=== PATIENT | male | born 1940 | race Caucasian/White ===

== ENCOUNTER 2017-11-14 00:18 | Observation (INO) | payer OTHER, MEDICARE ==
[~2017-11-14] VITALS: Ht 170.2 cm; Wt 83.0 kg
[~2017-11-14 00:18] MED LIST: CLOPIDOGREL75 MG PO; METOPROLOL SUCC50 MG PO; NITROSTAT0.4 M1 SL; ZETIA10 MG PO
--- NOTE | 2017-11-14 00:25 | ED SYNCOPE COMPLAINT ---
History of Present Illness General Chief Complaint: Syncope and Near-Syncope Stated Complaint: BIBA SYNCOPE X2, LAC ON TOE Source: patient Exam Limitations: no limitations Vital Signs & Intake/Output Vital Signs & Intake/Output Vital Signs Date Time Temp Pulse Resp B/P B/P Pulse O2 O2 Flow FiO2 Mean Ox Delivery Rate 11/14 0024 96.5 59 18 133/88 95 Room Air Allergies Coded Allergies: Iodinated Contrast- Oral and IV Dye (Intermediate, RAPID HR 11/14/17) Reconcile Medications CLOPIDOGREL BISULFATE (Clopidogrel) 75 MG TABLET 1 TAB PO DAILY BLOOD THINNER (Reported) Ezetimibe (Zetia) 10 MG TAB 1 TAB PO DAILY CHOLESTEROL (Reported) Metoprolol Succinate 50 MG TAB.ER.24H 1 TAB PO DAILY HEART HEALTH (Reported) Nitroglycerin (Nitrostat) 0.4 MG TAB.SUBL 1 TAB SL PRN CHEST PAIN (Reported) Triage Nurses Notes Reviewed? yes Timing: recent history Precipitating Factors: foot injury Context: banged toes Episode Description: banged left toes, then passed out twice Loss of Consciousness: brief (seconds) Associated Symptoms: syncope HPI: 77 yo gentleman h/o mi,cad, presents with 2 episodes of syncope. Per his , he banged his left toes. Shortly afterwards, he lost consciousness twice. "He passed out for about 15 seconds, came to, and then passed out again." Per the medics, his blood pressure was low and he was diaphoretic, and slowly resumed consciousness en route. Presently, he is feeling well, but has no recollection of the event. Past History Travel History Traveled to [place] past 21 day No Medical History Any Pertinent Medical History? see below for history Neurological: CVA Cardiovascular: CAD, myocardial infarction Surgical History Surgical History: none Psychosocial History What is your primary language Barbadian Family History Hx Contributory? No Review of Systems Review of Systems Constitutional: Reports: no symptoms. EENTM: Reports: no symptoms. Respiratory: Reports: no symptoms. Cardiovascular: Reports: no symptoms. GI: Reports: no symptoms. Genitourinary: Reports: no symptoms. Musculoskeletal: Reports: no symptoms. Skin: Reports: no symptoms. Neurological/Psychological: Reports: no symptoms. All Other Systems: Reviewed and Negative Physical Exam Physical Exam General Appearance: well developed/nourished Head: atraumatic, normal appearance Eyes: Bilateral: normal appearance. Ears, Nose, Throat: normal pharynx, normal ENT inspection Neck: normal inspection, supple, full range of motion Respiratory: normal breath sounds, chest non-tender, no respiratory distress, quiet respiration, lungs clear Cardiovascular: regular rate/rhythm Gastrointestinal: normal bowel sounds, soft, non-tender, no organomegaly Back: normal inspection, normal range of motion Extremities: normal inspection Psychiatric: awake, alert, oriented x 3 Cranial Nerves: normal hearing, normal speech, PERRL Coordination/Gait: normal finger to nose Motor/Sensory: no motor/sensory deficits Skin: intact, normal color, warm/dry Core Measures ACS in differential dx? No CVA/TIA Diagnosis: No Sepsis Present: No Sepsis Focused Exam Completed? No Progress Differential Diagnosis: AMI, sick sinus syndrome, subarachnoid hem., TIA/CVA Plan of Care: Orders Procedure Date/time Status CBC WITHOUT DIFFERENTIAL 11/15 0600 Active BASIC ELECTROLYTES PLUS BUN&CR 11/15 06 Active Nothing by Mouth 11/14 B Active TROPONIN LEVEL 11/14 1200 Active EKG 11/14 1200 Active TROPONIN LEVEL 11/14 0600 Active EKG 11/14 0600 Active Pathway - chart 11/14 0317 Active Patient Data 11/14 0306 Active Saline Lock 11/[address] in observation 11/14 0241 Active Misc Message 11/14 0241 Active ED Holding Orders 11/14 0241 Active Vital Signs 11/14 0241 Active Code Status 11/14 0241 Active D-DIMER 11/14 0034 Complete TROPONIN LEVEL 11/14 0025 Complete LIPASE 11/14 0025 Complete HEPATIC FUNCTION PANEL 11/14 0025 Complete CBC WITHOUT DIFFERENTIAL 11/14 0025 Complete BASIC METABOLIC PANEL 11/14 0025 Complete AMYLASE 11/14 0025 Complete EKG 11/14 0025 Active EKG 11/14 0024 Active House Staff 11/14 UNK Active VTE Mechanical Prophylaxis 11/14 UNK Active Vital Signs 11/14 UNK Active MISTAKE 11/14 UNK Active ECHOCARDIOGRAM 11/14 UNK Active Current Medications Sig/Willy Start time Last Medication Dose Stop Time Status Admin Heparin Sodium 5,000 UNIT Q8 11/14 0600 UNVr (Porcine) Laboratory Tests 11/14/17 0037: Anion Gap 13, Estimated GFR > 60, BUN/Creatinine Ratio 17.5, Glucose 101 H, Calcium 9.2, Total Bilirubin 0.3, Direct Bilirubin 0.2, AST 34, ALT 38, Alkaline Phosphatase 56, Troponin I < 0.01, Total Protein 6.3, Albumin 3.9, Amylase 61, Lipase 85, D-Dimer High Sensitivty 214, CBC w Diff NO MAN DIFF REQ, RBC 4.03 L, MCV 88.3, MCH 30.3, MCHC 34.3, RDW 13.5, MPV 7.3 L, Gran % 59.6, Lymphocytes % 28.1, Monocytes % 8.2, Eosinophils % 3.4, Basophils % 0.7, Absolute Granulocytes 3.5, Absolute Lymphocytes 1.6, Absolute Monocytes 0.5, Absolute Eosinophils 0.2, Absolute Basophils 0 Diagnostic Imaging: Viewed by Me: Radiology Read, CT Scan. Discussed w/RAD: Radiology Read, CT Scan. Radiology Impression: PATIENT: BRIAN BARCLAY PRESENT AGE: 77 PATIENT ACCOUNT NO: [id number] : 39 LOCATION: [facility] ORDERING PHYSICIAN: Wing Flynn MD SERVICE DATE: 11/14/17 EXAM TYPE: CAT - CT HEAD WO IV CONTRAST EXAMINATION: CT HEAD WITHOUT CONTRAST CLINICAL INFORMATION: Syncope. Mental status change. COMPARISON: 80 04/05/2014 TECHNIQUE: Contiguous axial imaging was performed from the skull base to vertex without intravenous contrast. DLP: 616 mGy-cm. FINDINGS: There is encephalomalacia and gliosis in the left frontal lobe at the site of previous parenchymal hemorrhage. 2 dilatation of the frontal horn of the left lateral ventricle. Chronic left occipital infarct. There is also a chronic infarct in the right frontal lobe which is new when compared to the study from 04/23/2014. There is no evidence of acute intracranial hemorrhage or territorial infarction. No abnormal mass effect or midline shift is seen. Hawkins to white matter differentiation is otherwise well preserved. No extra-axial fluid collections are identified. No hydrocephalus. Proportional prominence of the ventricles and sulcal spaces is consistent with mild volume loss. Patchy periventricular and deep white matter hypoattenuation is consistent with moderate small vessel ischemic changes. The osseous structures and soft tissues are normal. The mastoid air cells and visualized portions of the paranasal sinuses are well aerated. IMPRESSION: No acute intracranial pathology. Multiple chronic infarcts. DICTATED BY: Otoniel HACKETT,Ivan DATE/TIME DICTATED:02139 CONTINUOUS PILLOWCASE CUTTER:RAZA DATE/TIME TRANSCRIBED:11/14/17139 CONFIDENTIAL, DO NOT COPY WITHOUT APPROPRIATE AUTHORIZATION. <Electronically signed in Other Vendor System> SIGNED BY: Ivan Frederick MD 11/14/17144 CXR Impression: PATIENT: BRIAN BARCLAY PRESENT AGE: 77 PATIENT ACCOUNT NO: [id number] : 39 LOCATION: ER ORDERING PHYSICIAN: Wing Flynn MD SERVICE DATE: 11/14/17 EXAM TYPE: RAD - XRY-PORTABLE CHEST XRAY EXAMINATION: XR PORTABLE CHEST CLINICAL INFORMATION: Syncope COMPARISON: 04/23/2014 TECHNIQUE: Portable frontal view of the chest was obtained. FINDINGS: The lungs are well expanded. There is no focal consolidation, edema, or effusion. No pneumothorax. The cardiomediastinal silhouette is within normal limits. No acute osseous abnormality. IMPRESSION: No acute pulmonary findings. DICTATED BY: Ivan Frederick MD DATE/TIME DICTATED: 11/14/17141 CONTINUOUS PILLOWCASE CUTTER:ANDRA DATE/TIME TRANSCRIBED:11/14/17141 CONFIDENTIAL, DO NOT COPY WITHOUT APPROPRIATE AUTHORIZATION. <Electronically signed in Other Vendor System> SIGNED BY: Ivan Frederick MD 11/14/17145, PATIENT: BRIAN BARCLAY PRESENT AGE: 77 PATIENT ACCOUNT NO: [id number] : 39 LOCATION: [facility] ORDERING PHYSICIAN: Wing Flynn MD SERVICE DATE: 11/14/17 EXAM TYPE: RAD - XRY- TOES, LEFT EXAMINATION: XR TOES, LEFT CLINICAL INFORMATION: Third toe nail avulsion. Contusion. COMPARISON: None TECHNIQUE: 3 views of the left toes were obtained. FINDINGS: No fracture or dislocation. Alignment is anatomic. Degenerative changes noted at the fifth metatarsophalangeal joint. Mild degenerative changes throughout the visualized interphalangeal joints throughout. IMPRESSION: No evidence of acute fracture or malalignment. DICTATED BY: Ivan Frederick MD DATE/TIME DICTATED:11/14/17141 CONTINUOUS PILLOWCASE CUTTER: RAZA DATE/TIME TRANSCRIBED:11/14/17141 CONFIDENTIAL, DO NOT COPY WITHOUT APPROPRIATE AUTHORIZATION. <Electronically signed in Other Vendor System> SIGNED BY: Otoniel HACKETT,Ivan 11/14/17 0146 Initial ED EKG: normal axis, NSR, no acute changes Departure Departure Disposition: STILL A PATIENT Condition: Stable Clinical Impression Primary Impression: Syncope Referrals: Patient Has No Primary Care Dr (PCP/Family) Departure Forms: Customer Survey General Discharge Information Comments 11/14/17, 2:34am... discussed with dr. espinal who concurs with inpatient observation, serial troponins for syncope. Observation Note Spoke With: Bobbi Snyder MD Patient In: Non-ED OBS Care Area Rationale for Observation: My rational for observation is as follows . pt with syncope, with prolonged symptoms, and cardiac history.... pt merits cardiac eval in AM, serial trops/ekg.
[2017-11-14 00:52] LABS: ABSOLUTE BASOPHIL COUNT 0 /CUMM (0.0-0.2); ABSOLUTE EOSINOPHIL COUNT 0.2 /CUMM (0.0-0.7); ABSOLUTE GRANULOCYTE CT 3.5 /CUMM (1.4-6.5); ABSOLUTE LYMPH COUNT 1.6 /CUMM (1.2-3.4); ABSOLUTE MONOCYTE COUNT 0.5 /CUMM (0.10-0.60); BASOPHIL % 0.7 % (0.0-2.0); EOSINOPHIL % 3.4 % (0-5); GRANULOCYTE % 59.6 % (42.2-75.2); HEMATOCRIT 35.6 % (42-52); MEAN CORPUSCULAR HGB 30.3 PG (27.0-31.0); MEAN CORPUSCULAR HGB CONC 34.3 G/DL (33.0-37.0); MEAN CORPUSCULAR VOLUME 88.3 FL (80.0-94.0); MEAN PLATELET VOLUME 7.3 FL (7.4-10.4); PLATELET COUNT 215 /CUMM (130-400); RBC DISTRIBUTION WIDTH 13.5 % (11.5-14.5); RED BLOOD CELL CT 4.03 /CUMM (4.70-6.10); WHITE BLOOD CELL COUNT 5.8 /CUMM (4.8-10.8)
--- NOTE | 2017-11-14 01:45 | CT SCAN REPORT ---
EXAMINATION: CT HEAD WITHOUT CONTRAST CLINICAL INFORMATION: Syncope. Mental status change. COMPARISON: 80 04/05/2014 TECHNIQUE: Contiguous axial imaging was performed from the skull base to vertex without intravenous contrast. DLP: 616 mGy-cm. FINDINGS: There is encephalomalacia and gliosis in the left frontal lobe at the site of previous parenchymal hemorrhage. 2 dilatation of the frontal horn of the left lateral ventricle. Chronic left occipital infarct. There is also a chronic infarct in the right frontal lobe which is new when compared to the study from 04/23/2014. There is no evidence of acute intracranial hemorrhage or territorial infarction. No abnormal mass effect or midline shift is seen. Hawkins to white matter differentiation is otherwise well preserved. No extra-axial fluid collections are identified. No hydrocephalus. Proportional prominence of the ventricles and sulcal spaces is consistent with mild volume loss. Patchy periventricular and deep white matter hypoattenuation is consistent with moderate small vessel ischemic changes. The osseous structures and soft tissues are normal. The mastoid air cells and visualized portions of the paranasal sinuses are well aerated. IMPRESSION: No acute intracranial pathology. Multiple chronic infarcts.
--- NOTE | 2017-11-14 01:46 | RADIOLOGY REPORT ---
EXAMINATION: XR TOES, LEFT CLINICAL INFORMATION: Third toe nail avulsion. Contusion. COMPARISON: None TECHNIQUE: 3 views of the left toes were obtained. FINDINGS: No fracture or dislocation. Alignment is anatomic. Degenerative changes noted at the fifth metatarsophalangeal joint. Mild degenerative changes throughout the visualized interphalangeal joints throughout. IMPRESSION: No evidence of acute fracture or malalignment.
--- NOTE | 2017-11-14 01:46 | RADIOLOGY REPORT ---
EXAMINATION: XR PORTABLE CHEST CLINICAL INFORMATION: Syncope COMPARISON: 04/23/2014 TECHNIQUE: Portable frontal view of the chest was obtained. FINDINGS: The lungs are well expanded. There is no focal consolidation, edema, or effusion. No pneumothorax. The cardiomediastinal silhouette is within normal limits. No acute osseous abnormality. IMPRESSION: No acute pulmonary findings.
--- NOTE | 2017-11-14 03:08 | History & Physical ---
Noel HACKETT,[facility] 11/14/17 0308: General Information and HPI MD Statement: I have seen and personally examined BRIAN BARCLAY and documented this H&P. The patient is a 77 year old M who presented with a patient stated chief complaint of [?syncope]. History of Present Illness: 77-year-old male past history of CAD status post stent, MS, CVA X2 with intracranial bleed in 2013, frequent stumbling, herniated disc repair presenting for multiple syncope episodes per his . Most the history is given by the patient's . Patient's states that the patient is wobbly at baseline. The was helping the patient gets the bathroom however the patient while pulled and stumbled and stopped his toe outside the bathroom. The was able to help the patient onto the toilet. Where she noticed that the patient suddenly slumped against the wall. She asked if he was okay in that he slumped again. The the states that during the third slumped the patient was completely passed out for around 15 seconds. She believes that the patient also had another 1-2 precautions episodes. The patient's states that when EMS arrived they notice that he was still more sweaty than usual. The patient denies any chest pain, or palpitations. The denies any seizure-like activities. The patient states that his appetite has been fine. He denies any upper sternal infection, fevers, chills, shortness of breath, nausea, vomiting, lightheadedness, or any recent changes in his medication. 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 Allergies/Medications Allergies: Coded Allergies: Iodinated Contrast- Oral and IV Dye (Intermediate, RAPID HR 11/14/17) Past History Travel History Traveled to [place] past 21 day No Medical History Neurological: CVA X2 INTERMITTENT CONFUSION EENT: UNABLE TO COMPREHEND READING Cardiovascular: CAD, myocardial infarction Respiratory: NONE Gastrointestinal: NONE Hepatic: NONE Renal: NONE Musculoskeletal: NONE Psychiatric: NONE Endocrine: NONE Blood Disorders: NONE Cancer(s): NONE TEST ARCHITECT/Reproductive: NONE Surgical History Surgical History: disc herniation, appy, cataracts Review of Systems Review of Systems Constitutional: Reports: see HPI. Genitourinary: Reports: see HPI, frequency, hesitation. Exam & Diagnostic Data Last 24 Hrs of Vital Signs/I&O Vital Signs Date Time Temp Pulse Resp B/P B/P Pulse O2 O2 Flow FiO2 Mean Ox Delivery Rate 11/14 0606 97.9 59 18 148/72 96 Room Air 11/14 0453 100 Room Air 11/14 0409 98.3 59 16 158/75 98 Room Air 11/14 0024 96.5 59 18 133/88 95 Room Air Intake & Output 11/14 0800 11/14 0000 11/13 1600 Intake Total Output Total 200 Balance -200 Output, Urine 200 Physical Exam General Appearance Alert, Oriented X3, Cooperative, No Acute Distress Cardiovascular Regular Rate, Normal S1, Normal S2 Lungs Clear to Auscultation, Normal Air Movement Abdomen Normal Bowel Sounds, Soft, No Tenderness Extremities L 3rd toenail bruising, decreased left toe flexion due to prior fracture left pinky toe Vascular 2+ radial and pedal pulses Last 24 Hrs of Labs/[place]rispin: Laboratory Tests 11/14/17 0620: Troponin I < 0.01 11/14/17 0037: Anion Gap 13, Estimated GFR > 60, BUN/Creatinine Ratio 17.5, Glucose 101 H, Calcium 9.2, Iron 66, TIBC 365, Ferritin 67.5, Total Bilirubin 0.3, Direct Bilirubin 0.2, AST 34, ALT 38, Alkaline Phosphatase 56, Troponin I < 0.01, Total Protein 6.3, Albumin 3.9, Amylase 61, Lipase 85, D-Dimer High Sensitivty 214, CBC w Diff NO MAN DIFF REQ, RBC 4.03 L, MCV 88.3, MCH 30.3, MCHC 34.3, RDW 13.5 , MPV 7.3 L, Gran % 59.6, Lymphocytes % 28.1, Monocytes % 8.2, Eosinophils % 3.4, Basophils % 0.7, Absolute Granulocytes 3.5, Absolute Lymphocytes 1.6, Absolute Monocytes 0.5, Absolute Eosinophils 0.2, Absolute Basophils 0 Assessment/Plan Assessment: A: 77-year-old male past history of CAD status post stent, MS, CVA X2 with intracranial bleed in 2013, frequent stumbling, herniated disc repair presenting for multiple syncope episodes per his . P: #syncope s/p foot trauma Most likely vasovagal in nature from pain after foot trauma Toe XR: negative for any acute pathology Head ct: multiple chronic infarcts CXR: negative for any acute pathology Trops <.01x2 -serial trops and ekg -ortho stats -echo -cardiology consult #chronic hyponatremia Na 135 -stable, cont to monitor #hx of cad -cont atorvastain, aspirin #FULL CODE #DVT prophylaxis - heparin subq As Ranked By This Provider Problem List: 1. Syncope Core Measures/Misc (06/03) Acute Coronary Syndrome ACS Diagnosis: No Congestive Heart Failure Congestive Heart Failure Diagnosis No Cerebrovascular Accident CVA/TIA Diagnosis: No VTE (View Protocol) VTE Risk Factors Acute Medical Illness No Mechanical VTE Prophylaxis d/t Other No VTE Pharm Prophylaxis d/t NA PharmProphylax ordered Sepsis (View protocol) Sepsis Present: No Fred,Rosalind 11/14/17 0312: General Information and HPI Allergies/Medications Home Med list Aspirin (Aspirin*) 81 MG TAB.CHEW 1 TAB PO DAILY HEART (Reported) Atorvastatin Calcium 20 MG TABLET 1 TAB PO DAILY CHOLESTROL (Reported) Labetalol HCl 100 MG TABLET 1 TAB PO BID HEART (Reported) Multiple Vitamin (Multivitamins) 1 EACH TABLET 1 TAB PO DAILY SUPPLEMENT ( Reported) Nitroglycerin (Nitrostat) 0.4 MG TAB.SUBL 1 TAB SL AD PRN CHEST PAIN ( Reported) 1st sign of attack; may repeat every 5 minutes until relief; if pain persists after 3 tablets in 15 minutes, prompt medical att Resident Review Statement Resident Statement: examined this patient, discussed with internal consultant, agreed with internal consultant, discussed with family, reviewed EMR data (avail), discussed with nursing , discussed with case mgmt, reviewed images, amended to note Other Findings: 77 y/o male with a past medical history of coronary artery disease s/p PCI in 1990, 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 History is obtained from the family and the patient. According to the patient's , patient is a stumbler. He woke up last evening to use the rest room. Patients states that she helped him to the bathroom, at which point he wobbled and stumbled upon somthing in the room and hit his left third toe. She states she was able to help him over onto the toilet seat. At that point the patient, slumped against the wall however did not lose consciousness. She states that she bent over to look at the 2 and then he slumped again. Patient's got really anxious and called 911. Apparently patient had 2 subsequent episodes where he LOC and slumped, was out for 15secs. Patient' swife states he may have been a little confused when he woke up after passin out. She denies any hx of seizure like activity. Of note,patiet has never had these episodes before. Patient had had an episode about 4-5 months ago where he tripped while coming down stairs during the night. At that time he had injured his fifth digit of the left toe. Family history pertinent for multiple falls and early onset Alzheimers Vitals at the time of admission blood pressure 133/88, respiratory rate of 18, pulse 59, afebrile saturating 95% on room air. On physical exam he is alert, oriented 3 and in no acute distress lying comfortably in bed. ENT reveal PERRLA, dry mucous membranes. Examination of the neck did not reveal an elevated JVD. Cardiovascular exam pertinent for normal S1, S2, no murmurs rubs or gallops appreciated. Respiratpry exam pertinent for chest clear to auscultation bilaterally. Abdominal exam was benign, abdomen soft, nontender, nondistended normal bowel sounds in all 4 quadrants. Termination of the lower extremities did not reveal any edema however his third digit on the left foot toenail was bruised and had crusted blood on it. 2-week-old his toes more so on the right than the left. Of note he does have a history of fracture of the fifth left toe. Labs pertinent for normal white blood cell count of 5800, normocytic anemia with an H&H of 12.2/85.6 and a platelet count of 215,000. From chemistries revealed hyponatremia with a sodium of 135, potassium of 3.9, bicarbonate of 22, anion gap of 13, BUN 14 with a creatinine of 0.H Abdi revealed glucose 101. LFTs unremarkable with an AST/83/38, total bili 0.2, alkaline phosphatase of 56, first of troponin negative less than 0.01. Serum lipase was 85 and amylase was 61. D-dimer was 214. Chest x-ray showed no acute pulmonary findings Head CT showed no acute intracranial pathology, multiple chronic infarcts. X-ray of the toe was done as he has avulsed his left toenail.There is no evidence of acute fracture or malalignment. Assessment and plan Placed under observation on telemetry to rule out any arrhythmias that may have caused syncope. #Syncopal episode Is likely secondary to vasovagal episode versus any underlying cardiac arrhythmias versus aortic stenosis as he doesn't have any audible holosystolic murmur. Other differential could be that he was orthostatic positive. Trend troponins and EKG to rule out ACS at 6 AM and 12 PM Echocardiogram to rule out for aortic or valvular stenosis Monitor on telemetry for 24 hours to rule out for any arrhythmias Follow-up orthostatic vitals Hydrate with IV fluids at 75 MLS per hour for 1 bag. A urology consult in a.m. with Dr. Hernandez's group #Hx of CVA Continue on aspirin 81 mg daily and atorvastatin #History of coronary artery disease Continue on aspirin, statin, labetalol 100 mg twice a day DVT prophylaxis On heparin 5000 international unit 3 times a day subcutaneous Diet Heart healthy Code Status - Full Code Bobbi Snyder 11/14/17 0636: Attending MD Review Statement Attending Statement Attending MD Statement: examined this patient, discuss w/resident/PA/DATA QUALITY CONSULTANT, agreed w/resident/PA/DATA QUALITY CONSULTANT, discussed with family, reviewed EMR data (avail), reviewed images, amended to note Attending Assessment/Plan: CC: Passing out episodes PMH: CAD S/P MS S/P stents, CVA Patient was brought in ER through EMS after passing out episodes. According to patient's patient prefers to lie down on the floor for a few hours before actually going to bed every night. Today when she was helping him get up from floor to go to bed when he stumbled and hurt his third on left foot. Immediately after that episode, patient slumped over against the wall total 4-5 times. She also noticed that 2-3 times he lost consciousness in those episodes. During each episode patient was losing consciousness for 10-15 seconds. After the last episode he was mildly confused but quite did not notice any seizure-like activity. Patient did not have any chest pain, palpitations, dizziness before slumping. He had mild chills and diaphoretic when EMS arrived. Patient denies any nausea, vomiting, diarrhea, URI symptoms, shortness of breath few days prior. He has chronically increased urinary frequency Vitals: Afebrile, pulse in 60s, RR 18, blood pressure 133/88, saturating well on room air. On exam: A O 3, cooperative, no acute distress, neck supple, JVD normal, no lymphadenopathy, mucosa moist, no focal neurological deficit, no dependent edema , no obvious skin rashes or inflammation except trauma to third left toe nail with blood CVS: S1-S2, RRR. RS: Clear to auscultate bilaterally. Abdomen: Soft, NT, ND, bowel sounds present. CXR: No acute pulmonary findings. Head CT: No acute intracranial pathology. Multiple chronic infarcts Left toe x-ray: No evidence of acute fracture or malalignment. Assessment and plan 77-year-old male with multiple comorbidities present in ER for several syncopal and presyncopal episodes happened after accidental stumbling and hurting his left toe. These episodes seem like vasovagal according to symptoms but arrhythmias, structural heart disease, orthostatic hypotension should be ruled out. Patient has clotted blood around left third toe, otherwise exam unremarkable. + Syncope and collapse + Hx of CAD S/P MS S/P stents, CVA - Place in observation on telemetry - Continuous telemetry monitoring - Serial troponin and EKG - Orthostatic vitals - 2-D echocardiogram in a.m. - Cardiology consult - DVT prophylaxis - Adequate pain control
[2017-11-14] MEDS ORDERED: LABETALOL HCL100 M1 PO (03:43)
[2017-11-14] MEDS ORDERED: ATORVASTATIN CA20 M1 PO (03:44)
[2017-11-14] MEDS ORDERED: ASPIRIN81 M4 PO (03:44)
[2017-11-14] MEDS ORDERED: MULTIVITAMINS1 EAC9 PO (03:45)
--- NOTE | 2017-11-14 08:26 | PN-Observation ---
See Addendum Observation Note Observation Note _ I have personally examined BRIAN BARCLAY. him disposition is uncertain at this time. Before a determination can be made, he requires continued observation for the following reasons [syncope]. 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 The patient's notices that he was a stumbling last night, and he had his left foot very hard after which he started feeling woobly and he passed out twice each time was 1015 seconds, followed by trade of confusion around 10 minutes, there was no dizziness, lightheadedness or seizure before or after the syncope # Syncope: The syncope episode happened after painful injury to his toe which make it most likely due to vasovagal episode, however when I went over his medication the patient think that he might have taken his blood pressure meds as twice in the evening, also he was noticed to have orthostatic hypotension in the ED which make orthostatic hypotension due to Labetolol overdose one of the possibilities -We'll observe on telemetry floor Vitals every shift Encourage oral intake Follow up on cardiology recommendation Troponin and EKG were negative which ruled out ACS Monitor intake and output Continue his home meds # Hx of CAD, HTN Stable, We'll need to follow up with his contact worker as outpatient Patient is full code DVT prophylaxis subcutaneous heparin Heart healthy diet Problem List: 1. Syncope Subjective Follow-up For: Syncope: Subjective: The patient was seen and examined at bedside, he reports mild dizziness when he sits up from lying down position, he also reports mild hesitancy and frequency but denies any dysuria, he denies chest pain, shortness of breath, nausea vomiting diarrhea, fever or chills Review of Systems Constitutional: Denies: no symptoms. EENTM: Denies: no symptoms. Cardiovascular: Denies: no symptoms. Respiratory: Denies: no symptoms. Gastrointestinal: Denies: no symptoms. Musculoskeletal: Denies: no symptoms. Skin: Denies: no symptoms. Objective Last 24 Hrs of Vital Signs/I&O Vital Signs Date Time Temp Pulse Resp B/P B/P Pulse O2 O2 Flow FiO2 Mean Ox Delivery Rate 02/28 1004 84 152/72 11/14 0915 84 154/84 11/14 0902 74 152/72 11/14 0606 97.9 59 18 148/72 96 Room Air 11/14 0453 100 Room Air 11/14 0409 98.3 59 16 158/75 98 Room Air 11/14 0024 96.5 59 18 133/88 95 Room Air Intake & Output 11/14 1600 11/14 0800 11/14 0000 Intake Total Output Total 250 200 Balance -250 -200 Output, Urine 250 200 Physical Exam General Appearance: Alert, Oriented X3, Cooperative, No Acute Distress HEENT: EOMI, Mucous Membr. moist/pink Cardiovascular: Normal S1, Normal S2, No Murmurs Lungs: Clear to Auscultation Abdomen: Normal Bowel Sounds, Soft, No Tenderness Neurological: Normal Speech, Strength at 5/5 X4 Ext, Normal Tone, Sensation Intact Extremities: No Clubbing, No Cyanosis, No Edema, left 3 rd toe bruising Vascular: Normal Pulses
--- NOTE | 2017-11-14 09:42 | Cons- Cardiology ---
General Information and HPI Consulting Request Date of Consult: 11/14/17 Requested By: Zeke Ramirez MD Reason for Consult: Syncope Source of Information: patient, old records Exam Limitations: no limitations History of Present Illness: The patient is a 77-year-old gentleman with a past medical history of coronary artery disease (multivessel), prior CVA (2006 status post cardiac catheterization, intracranial bleed 2013), back surgery secondary to herniated disks. He presents following a syncopal episode. The patient states he was emulating to the bathroom when he hit his toe on a declaration. This causes intense pain, and subsequent syncope, described as a slumping against the wall by his . He initially was able to partially regained consciousness; however, had recurrent syncope. There was no prodrome of palpitations nor was there concurrent chest pain. The patient otherwise denies recent symptoms of syncope while at rest or with activity. He describes being able to perform approximately 4-6 METs of physical activity on a regular basis without difficulty. Upon arrival by EMS, the patient states he had felt significantly improved; however, was noted to be diaphoretic. On arrival to our hospital, troponin isoenzymes were negative, and initial EKG demonstrated normal sinus rhythm only. Of note, the patient seeks his cardiac care from Dr. Shayla Ravi of [facility]. He underwent an echocardiogram in 2014 which demonstrated preserved LV systolic function and normal valvular structure and function. Allergies/Medications Allergies: Coded Allergies: Iodinated Contrast- Oral and IV Dye (Intermediate, RAPID HR 11/14/17) Home Med List: Aspirin (Aspirin*) 81 MG TAB.CHEW 1 TAB PO DAILY HEART (Reported) Atorvastatin Calcium 20 MG TABLET 1 TAB PO DAILY CHOLESTROL (Reported) Labetalol HCl 100 MG TABLET 1 TAB PO BID HEART (Reported) Multiple Vitamin (Multivitamins) 1 EACH TABLET 1 TAB PO DAILY SUPPLEMENT ( Reported) Nitroglycerin (Nitrostat) 0.4 MG TAB.SUBL 1 TAB SL AD PRN CHEST PAIN ( Reported) 1st sign of attack; may repeat every 5 minutes until relief; if pain persists after 3 tablets in 15 minutes, prompt medical att Current Medications: Current Medications Sig/Willy Start time Last Medication Dose Route Stop Time Status Admin Aspirin 81 MG DAILY 11/14 1000 AC PO Aspirin 0 .STK-MED ONE 11/14 0302 DC PO Aspirin 325 MG ONCE ONE 11/14 0245 DC PO 11/14 0246 Atorvastatin Calcium 20 MG 1700 11/14 1700 AC PO Heparin Sodium 5,000 UNIT Q8 11/14 0600 AC (Porcine) SC Labetalol HCl 100 MG BID 11/14 1000 AC PO Multivitamins 1 TAB DAILY 11/14 1000 AC Therapeutic PO Sodium Chloride 1,000 ML ONCE ONE 11/14 0400 AC 11/14 IV 11/14 1719 0450 Review of Systems Review of Systems: The review of systems is negative for chest pains, palpitations nor lightheadedness. The remainder of the 14 point review of systems is noncontributory with the exception of above. 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 Surgical History Surgical History: disc herniation, appy, cataracts Psychosocial History Smoking Status: Former Smoker Exam & Diagnostic Data Vital Signs and I&O Vital Signs Date Time Temp Pulse Resp B/P B/P Pulse O2 O2 Flow FiO2 Mean Ox Delivery Rate 11/14 0902 74 152/72 11/14 0606 97.9 59 18 148/72 96 Room Air 11/14 0453 100 Room Air 11/14 0409 98.3 59 16 158/75 98 Room Air 11/14 0024 96.5 59 18 133/88 95 Room Air Intake & Output 11/14 1600 11/14 0800 11/14 0000 11/13 1600 11/13 0800 11/13 0000 Intake Total Output Total 250 200 Balance -250 -200 Output, Urine 250 200 Physical Exam: General: Nontoxic, no apparent distress. HEENT: Sclera and conjunctiva within normal limits, without xanthelasmas. Neck: Carotids 2+ without bruits. Respiratory: Clear to auscultation, air movement is good, without accessory respiratory muscle use. Heart: Regular rate and rhythm, without murmurs, without JVD. Abdomen: Soft, nontender, no masses, normoactive bowel sounds. Extremities: Without clubbing, cyanosis, without edema. Neuro: Nonfocal exam, strength, 5 out of 5 Skin: Within normal limits without lesions. Psych: Mood and affect: Normal Labs/[place] Results: Laboratory Tests 11/14 11/14 0620 0037 Chemistry Sodium (137 - 145 mmol/L) 135 L Potassium (3.5 - 5.1 mmol/L) 3.9 Chloride (98 - 107 mmol/L) 101 Carbon Dioxide (22 - 30 mmol/L) 22 Anion Gap (5 - 16) 13 BUN (9 - 20 mg/dL) 14 Creatinine (0.7 - 1.2 mg/dL) 0.8 Estimated GFR (>60 ml/min) > 60 BUN/Creatinine Ratio (7 - 25 %) 17.5 Glucose (65 - 99 mg/dL) 101 H Calcium (8.4 - 10.2 mg/dL) 9.2 Iron (49 - 181 ug/dL) 66 TIBC (261 - 462 ug/dL) 365 Ferritin (17.9 - 464 ng/mL) 67.5 Total Bilirubin (0.2 - 1.3 mg/dL) 0.3 Direct Bilirubin (< 0.4 mg/dL) 0.2 AST (17 - 59 U/L) 34 ALT (21 - 72 U/L) 38 Alkaline Phosphatase (< 127 U/L) 56 Troponin I (<0.11 ng/ml) < 0.01 < 0.01 Total Protein (6.3 - 8.2 g/dL) 6.3 Albumin (3.5 - 5.0 g/dL) 3.9 Amylase (30 - 110 U/L) 61 Lipase (23 - 300 U/L) 85 Coagulation D-Dimer High Sensitivty (0 - 243 ng/ml) 214 Hematology CBC w Diff NO MAN DIFF REQ WBC (4.8 - 10.8 /CUMM) 5.8 RBC (4.70 - 6.10 /CUMM) 4.03 L Hgb (14.0 - 18.0 G/DL) 12.2 L Hct (42 - 52 %) 35.6 L MCV (80.0 - 94.0 FL) 88.3 MCH (27.0 - 31.0 PG) 30.3 MCHC (33.0 - 37.0 G/DL) 34.3 RDW (11.5 - 14.5 %) 13.5 Plt Count (130 - 400 /CUMM) 215 MPV (7.4 - 10.4 FL) 7.3 L Gran % (42.2 - 75.2 %) 59.6 Lymphocytes % (20.5 - 51.1 %) 28.1 Monocytes % (1.7 - 9.3 %) 8.2 Eosinophils % (0 - 5 %) 3.4 Basophils % (0.0 - 2.0 %) 0.7 Absolute Granulocytes (1.4 - 6.5 /CUMM) 3.5 Absolute Lymphocytes (1.2 - 3.4 /CUMM) 1.6 Absolute Monocytes (0.10 - 0.60 /CUMM) 0.5 Absolute Eosinophils (0.0 - 0.7 /CUMM) 0.2 Absolute Basophils (0.0 - 0.2 /CUMM) 0 Assessment/Plan Assessment/Plan The patient is a 77-year-old gentleman with a past medical history of coronary artery disease (multivessel), prior CVA (2005 status post cardiac catheterization, intracranial bleed 2013), back surgery secondary to herniated disks. He presents following a syncopal episode. Syncope: The patient presents with syncope which is most likely secondary to the etiology of his painful toe trauma. At this point, we will check orthostatic blood pressures as well as a repeat echocardiogram findings are negative, further workup for his event may be performed as an outpatient. Hypertension: In reviewing the patient's outpatient blood pressure records, his outpatient blood pressure values have demonstrated improved control in comparison to his current levels. I would continue his outpatient regimen and adjust following discharge. Coronary artery disease: Stable. The patient describes being able to perform approximately 6 METs of physical activity emitted by his back pain. He is followed by his primary mold carpenter and we'll continue follow-up with the same upon discharge. Thank you for allowing us to participate in the care of your patient. Please do not hesitate to contact us further with any questions. Sincerely, Matti Friend MD [facility] Consult Acknowledgment - Thank you for your consult request.
--- NOTE | 2017-11-14 10:01 | Patient Discharge Instructions ---
Discharge Instructions General Discharge Information You were seen/treated for: 1syncope 2hypertension 3CAD Special Instructions: 1-please follow-up with your television production technician in 1 week of discharge 2please follow up with her PCP in 1 week of discharge 3please take your medications as advised Diet Continue normal diet: Yes Activity Full Activity/No Limits: Yes Acute Coronary Syndrome Inclusion Criteria At DC or during hospital stay patient has or had the following: ACS DIAGNOSIS No Discharge Core Measures Meds if any: Prescribed or Continued at Discharge Meds if any: NOT Prescribed or Continued at Discharge Congestive Heart Failure Inclusion Criteria At DC or during hospital stay patient has or had the following: CHF DIAGNOSIS No Discharge Core Measures Meds if any: Prescribed or Continued at Discharge Meds if any: NOT Prescribed or Continued at Discharge Cerebrovascular accident Inclusion Criteria At DC or during hospital stay patient has or had the following: CVA/TIA Diagnosis No Discharge Core Measures Meds if any: Prescribed or Continued at Discharge Meds if any: NOT Prescribed or Continued at Discharge Venous thromboembolism Inclusion Criteria VTE Diagnosis No VTE Type NONE VTE Confirmed by (Test) NONE Discharge Core Measures - Per Current guidelines, there needs to be overlap - treatment for the first 5 days of Warfarin therapy. - If discharged on Warfarin prior to 5 days of - overlap therapy, the patient will need to be - assessed for post discharge needs including - *Post discharge parental anticoagulation - *Warfarin and/or parental anticoagulation education - *Follow up date to check INR post discharge At least 5 days overlap therapy as Inpatient No Meds if any: Prescribed or Continued at Discharge Note: Overlap Therapy is Warfarin and Anticoagulant Meds if any: NOT Prescribed or Continued at Discharge
--- NOTE | 2017-11-14 11:02 | PN- Student ---
Subjective Subjective: *Full H&P* ID: Mr. 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 Presented to the ED after an episode of syncope, witnessed by his . Patient has memory impairment & is a poor historian, history mostly obtained from his who was bedside. CC: states that she called the ambulance after noticing the patient was slumped over and unconscious after she had helped him to the toilet and was helping bandage his foot which he had injured while she helped him walk to the bathroom. HPI: Patient himself has issues with memory and does not recall the episode, so his provides majority of the history. She states that had three episodes of syncope & slumping over while seated on the toilet. Prior to this episode, the patient had been sleeping on the ground in front on the TV; the states that every evening the patient falls asleep on the floor an she goes and wakes him up before bed, helps him to the bathroom, and then they go to bed together. On this particular night, She noticed that her was a bit more wobbly on his feet on the way to the bathroom, & as they were making their way in the dark, he stumbled & stubbed his toe of the left foot on a large statue in the pluido. She was able to help him make it to the bathroom and seated him on the toilet, noticing his foot was bleeding, she started bandaging his wound. She states that she noticed he was mumbling & when she looked up st him, he was slumped over against the wall & that she helped him sit up and asked if he was okay but he slumped over again. She sat him up again, but became worried and decided to call the ambulance, during this phone call the patient again slumped over this time losing all the tone in his arms and remaining unconscious for about 15 seconds. The patients reports that he was dazed and confused when he awoke and that the EMS arrived shortly thereafter. Mr. Hardy does not recall fainting, but does state that he felt clamy and lightheaded by the time the EMS arrived. The patient did not experience any chest pain, palpitations, shortness of breath, fever, chills, nausea/vomiting, change in appetite or bowel movements, & his denies any seizure like activity. has had two sims & an MD in the past but denies ever experiencing any episode of this sort. The patient does report that he has had increased urinary frequency, hesitancy, & decreased volume of urine/urinary retention for many years, but he has not spoke to his doctor about this. When asked about medications, the patient stated that it is possible he took his afternoon medications in the morning as this is something he has mistakenly done in the past. 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 - Confusion & worsening memory Impairment, since his stroke in 2005 - CAD & MD s/p stent placement in 1990 - Herniated Disk s/p Surgery in 1964 - Appendicitis s/p Appendectomy in 1957 - HTN - HLD PSHx: - Resection of left forearm basal cell carcinoma in 2015 - Cataract surgery in 2013 - Colonoscopy in 2012 - Cardiac stent placement in 1990 - Herniated Disk surgery in 1964 - Appendectomy in 1957 Home Medications: - Aspirin 81mg chew 1tab daily - Atorvastatin 20mg 1tab daily - Labetalol 100mg 1tab BID - Nitroglycerine 0.4mg sublingual PRN Allergies: - Iodinated Contrast, Oral and IV Dye (Intermediate, causes tachycardia) FHx: - Mother passed in her 80's, had Alzheimers - Father passed in 80's, had some GI issue - Sister passed when she was 14 d/t blood cancer - Oldest brother has Alzheimers SHx: - Non smoker - Non drinker - No illicit drug use - once & Remarried - 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 ROS: - Constitutional: reports mild fatigue & lightheadedness; denies fevers, chills, or N/V - HEENT: denies vertigo, rhinorrhea, congestion, sore throat, hearing loss, diplopia - CV: denies any chest pain, palpitations, peripheral edema, orthopnea, or PND - Respiratory: denies any SOB, dyspnea, wheezing, cough, hemoptysis - GI: denies any abdominal pain, diarrhea, change in frequency or consistency - Urinary: reports increased frequency & hesitancy; denies any hematuria or urgency - : denies penile discharge, sores, testicular pain, hernias - MSK: denies any pain, swelling, tenderness in joints - Neurologic: Some balance issues & unsteadiness in gait; denies any loss of sensation, tinging, does not recall any prior episodes of syncope - Skin: denies rashes, bruises - Psych: denies depression, anxiety, or change in mood Otherwise as indicated in HPI Objective Objective: Vital Signs Date Time Temp Pulse Resp B/P B/P Pulse O2 O2 Flow FiO2 Mean Ox Delivery Rate 11/14 1004 84 152/72 11/14 0915 84 154/84 11/14 0902 74 152/72 11/14 0606 97.9 59 18 148/72 96 Room Air 11/14 0453 100 Room Air 11/14 0409 98.3 59 16 158/75 98 Room Air 11/14 0024 96.5 59 18 133/88 95 Room Air Intake & Output 11/14 1600 11/14 0800 11/14 0000 Intake Total Output Total 250 200 Balance -250 -200 Output, Urine 250 200 Physical Exam: - General: Pleasant, positive affect, cooperative, A&Ox3, appropriate dress & hygiene, appears to be in no acute distress. - Head: Normocephalic, without any visible scars, deformities, or trauma - EENT: Pupils both equally round and reactive to light, no signs of jaundice, or conjunctival injection. Normal hearing bilaterally, no sinus pain or congestion, discharge or discoloration. No throat pain. - Neck: Trachea midline, no palpable lymph nodes or tenderness - Cardiac: Normal S1 & S1 with irregular rate & rhythm, no audible murmurs, rubs , or gallops. no elevated JVD or change with hepatojugular reflex, PMI not appreciated. Distal pulses 2+ bilaterally. - Lungs: Auscultation of the posterior chest wall reveals normal breath sounds throughout bilateral lung mccray, no use of accessory muscles of respiration, normal chest wall movements with breathing. - GI: Normal bowel sounds throughout, abdomen soft and non-tender to palpation, with no guarding or distension. - Extremities: Tenderness & bruising noted on Left third toe nail, decreased flexion of left toes due to current trauma & prior fracture of left pinky toe; No edema, no clubbing or cyanosis. - Neuro: Sensation intact, Patient is mildly confused and has difficulty with memory Results Results: Laboratory Tests 11/14/17 0620: Troponin I < 0.01 11/14/17 0037: Anion Gap 13, Estimated GFR > 60, BUN/Creatinine Ratio 17.5, Glucose 101 H, Calcium 9.2, Iron 66, TIBC 365, Ferritin 67.5, Total Bilirubin 0.3, Direct Bilirubin 0.2, AST 34, ALT 38, Alkaline Phosphatase 56, Troponin I < 0.01, Total Protein 6.3, Albumin 3.9, Amylase 61, Lipase 85, D-Dimer High Sensitivty 214, CBC w Diff NO MAN DIFF REQ, RBC 4.03 L, MCV 88.3, MCH 30.3, MCHC 34.3, RDW 13.5 , MPV 7.3 L, Gran % 59.6, Lymphocytes % 28.1, Monocytes % 8.2, Eosinophils % 3.4, Basophils % 0.7, Absolute Granulocytes 3.5, Absolute Lymphocytes 1.6, Absolute Monocytes 0.5, Absolute Eosinophils 0.2, Absolute Basophils 0 Imaging: EKG: Assessment/Plan Assessment: Mr. Hardy is a 77 y.o. 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 Plan: Mr. Hardy will be put on Observation & transferred to the Telemetry floor for management of: #Syncopial Episode Assessment: Syncope occurs when there is insufficient blood flow/oxygen delivery to the brain - Vasovagal syncope results from a sudden drop in HR and BP which occurs in response to a stressful trigger, such as pain. This is the most likely cause in case given that the episode took place almost immediately after he experienced trauma to his foot. - Cardiac Syncope can result from various heart conditions that cause decreased HR &/or low BP, including arrhythmias such as A.Fib, cardiac ischemia, aortic stenosis, or heart failure. Although the patient's EKG on admission showed a mildly bradycardic rate of 59, it was otherwise normal & a cardiac etiology is less likely given his BP of 133/88 on admission, troponins < 0.01x2, & no abnormal cardiac findings on examination or ROS. Plan: - Cardiology consult placed with Dr. Silvestre's group - Echocardiogram - Orthostatic vitals - Continue hydration with IV fluids - Monitor on telemetry - Monitor vitals #Hx of CAD s/p PCI: Assessment: - CAD is a pre-existing condition with associated PMHx of an MD s/p PCI in 1990 Plan: - Continue Aspirin 81mg 1xday - Continue Atorvastatin 20mg 1xday - Continue Labetalol 100mg 2xday - Placed on heart healthy diet #Hx of CVA: Assessment: - Patient has had 2 CVA's, Ischemic stroke first in 2005 due to complications of an angiogram resulting in an atheroembolism, & a hemorrhagic stroke, of unknown etiology, in 2013. Plan: - Continue Atorvastatin 20mg 1xday - Continue Aspirin 81mg 1xday #Left Foot Pain: Assessment: - Trauma to the first three toes on the left foot was reported by the patient on admission. X-ray of the toes showed no fractures, dislocation, or acute changes. Plan: - Manage pain - Continue to monitor #Impaired Memory: Assessment: - Vascular Dementia or Multi-infarct dementia occurs as a result of multiple strokes leading to neuronal damage which can cause impaired memory, the patients 2 prior CVA's & head CT showing multiple chronic infarcts make this the most likely etiology. - Alzheimer Dementia has gradual onset and initial presentation of memory impairment; this should also be considered given the patients family history of Alzheimer's disease. Plan: - Follow up with PCP for outpatient workup & management #Urinary Frequency: Assessment: - Benign Prostatic Hyperplasia commonly found in older males and can impede the outflow of urine from the bladder due to compression of the urethra as it passes through the enlarging prostate. The urinary outflow obstruction seen in BPH often presents with symptoms such as urinary hesitancy, increased urinary frequency, and decreased volume of urinary output; all of which are reported by this patient. Plan: - Follow up with PCP for outpatient workup & management of possible BPH - Continue to monitor #Agnosic Alexia: Assessment: - Agnosic Alexia is the acquired inability to read with the preservation of other language functions, and is almost always due to infarct of the posterior cerebral artery. acquired this condition after his first stroke, in 2005. Plan: - Review any documents in the presence of the patients who is his POA - Follow up with outpatient Neuro if needed #Essential Hypertension: Assessment: - Pre-existing condition that is currently well managed, BP on admission was 133 /88. Plan: - Continue Labetalol 100mg 2xday - Monitor vitals #Hyperlipidemia: Assessment: - Pre-existing condition that is currently well managed on home medication. Plan: - Continue Atorvastatin 20mg 1xday - Placed on heart healthy diet #DVT Prophylaxis: - Started on subcutaneous Heparin 5000IU 3xday #Full Code
[2017-11-14 11:29] VITALS: BP 140/80
[2017-11-14 14:00] VITALS: BP 140/80
[2017-11-14 22:34] VITALS: BP 130/72
--- NOTE | 2017-11-15 06:29 | ECHOCARDIOGRAM REPORT ---
BRIAN BARCLAY Age: 77 : 1940 Gender: M Exam Date: 11/14/2017 13:50 Exam Location: [facility] Ht (in): 67 Wt (lb): 185 BSA: 2.01 BP: 140 / 80 Ordering Physician: Rosalind Ibarra MD Referring Physician: Matti Friend M.D. Technologist: Richa Casper RDCS Room Number: [id number] Indications: PRESYNCOPE/SYNCOPE Rhythm: Technical Quality: FINDINGS Left Ventricle Normal size left ventricle. Left ventricular wall thickness mildly increased. Normal left ventricular ejection fraction estimated at 60-65%. Right Ventricle Normal right ventricular size and function. Right Atrium Normal right atrial size. Left Atrium Mild left atrial dilatation. Mitral Valve Mild mitral annular calcification. Mild mitral regurgitation. Aortic Valve Aortic valve is normal in structure and function. Tricuspid Valve Tricuspid valve is normal in structure and function. Mild tricuspid regurgitation. Right ventricular systolic pressure estimated to be within the normal range at 24 mmHg. Pulmonic Valve Pulmonic valve not well visualized, grossly normal. Pericardium No pericardial effusion. Great Vessels Normal size aortic root. CONCLUSIONS Normal left and right ventricular systolic function. Mild left ventricular hypertrophy. No significant valvular abnormalities noted. Nate Silvestre M.D. (Electronically Signed) Final Date: 15 November 2017 06:28 MEASUREMENTS (Male / Female) Normal Values 2D ECHO LV Diastolic Diameter PLAX 4.4 cm 4.2 - 5.9 / 3.9 - 5.3 cm LV Systolic Diameter PLAX 2.0 cm 2.1 - 4.0 cm LV Fractional Shortening PLAX 54.5 % 25 - 46 % LV Ejection Fraction 2D Teich 85.5 % IVS Diastolic Thickness 1.3 cm LVPW Diastolic Thickness 1.2 cm LV Relative Wall Thickness 0.6 RV Internal Dim ED PLAX 2.8 cm 1.9 - 3.8 cm LVOT Diameter 2.0 cm Aortic Root Diameter 3.2 cm LA Systolic Diameter LX 3.9 cm 3.0 - 4.0 / 2.7 - 3.8 cm LA Volume 41.0 cm 18 - 58 / 22 - 52 cm Ascending Aorta Diameter 3.4 cm DOPPLER AV Peak Velocity 150.0 cm/s AV Peak Gradient 9.0 mmHg AV Mean Velocity 103.0 cm/s AV Mean Gradient 5.0 mmHg AV Velocity Time Integral 31.6 cm LVOT Peak Velocity 125.0 cm/s LVOT Peak Gradient 6.3 mmHg LVOT Mean Velocity 85.9 cm/s LVOT Mean Gradient 3.0 mmHg LVOT Velocity Time Integral 25.6 cm LVOT Stroke Volume 80.4 cm AV Area Cont Eq vti 2.5 cm AV Area Cont Eq pk 2.6 cm MV Peak Velocity 86.9 cm/s MV Peak Gradient 3.0 mmHg MV Mean Velocity 50.9 cm/s MV Mean Gradient 1.0 mmHg Mitral E Point Velocity 69.6 cm/s Mitral A Point Velocity 80.5 cm/s Mitral E to A Ratio 0.9 MV PHT Velocity 75.3 cm/s MV Deceleration [place] 213.0 cm/s MV Pressure Half Time 106.1 ms MV Area PHT 2.1 cm MV Deceleration Time 343.0 ms TR Peak Velocity 238.0 cm/s TR Peak Gradient 22.7 mmHg Right Atrial Pressure 5.0 mmHg Pulmonary Artery Systolic Pressu 27.7 mmHg Right Ventricular Systolic Press 27.7 mmHg PV Peak Velocity 95.1 cm/s PV Peak Gradient 3.6 mmHg PV Mean Velocity 66.8 cm/s PV Mean Gradient 2.0 mmHg PV Velocity Time Integral 19.8 cm LV E' Lateral Velocity 7.8 cm/s Mitral E to LV E' Lateral Ratio 8.9 LV E' Septal Velocity 5.7 cm/s Mitral E to LV E' Septal Ratio 12.3
[2017-11-15 06:53] VITALS: BP 134/66
--- NOTE | 2017-11-15 07:08 | PN-Observation ---
Judie HACKETT,Geri 11/15/17 0708: Observation Note Observation Note _ I have personally examined BRIAN BARCLAY. him disposition is uncertain at this time. Before a determination can be made, he requires continued observation for the following reasons [SYNCOPE]. 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 The patient's notices that he was a stumbling last night, and he had his left foot very hard after which he started feeling woobly and he passed out twice each time was 1015 seconds, followed by trade of confusion around 10 minutes, there was no dizziness, lightheadedness or seizure before or after the syncope # Syncope: The syncope episode happened after painful injury to his toe which make it most likely due to vasovagal episode, however when I went over his medication the patient think that he might have taken his blood pressure meds as twice in the evening, also he was noticed to have orthostatic hypotension in the ED which make orthostatic hypotension due to Labetolol overdose one of the possibilities -We'll observe on telemetry floor Vitals every shift Encourage oral intake Follow up on cardiology recommendation Troponin and EKG were negative which ruled out ACS Monitor intake and output Continue his home meds # Hx of CAD, HTN Stable, We'll need to follow up with 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 Syncope Subjective Follow-up For: Syncope Complaints: no complaints Subjective: Patient is seen and examined at bedside, Review of Systems Constitutional: Reports: see HPI. Objective Last 24 Hrs of Vital Signs/I&O Vital Signs Date Time Temp Pulse Resp B/P B/P Pulse O2 O2 Flow FiO2 Mean Ox Delivery Rate 11/15 1000 76 122/50 11/15 0839 70 130/62 11/15 0653 98.1 61 20 134/66 97 Room Air 11/14 2234 98.2 71 16 130/72 93 Room Air 11/14 2110 72 130/72 Intake & Output 11/15 1600 11/15 0800 11/15 0000 Intake Total 110 780 Output Total 250 Balance -140 780 Intake, IV 10 300 Intake, Oral 100 480 Output, Urine 250 Physical Exam General Appearance: Alert, Oriented X3, Cooperative, No Acute Distress HEENT: Atraumatic, PERRLA, EOMI, Mucous Membr. moist/pink Cardiovascular: Normal S1, Normal S2, No Murmurs Lungs: Clear to Auscultation Abdomen: Normal Bowel Sounds, Soft, No Tenderness Extremities: No Clubbing, No Cyanosis, No Edema Vascular: Normal Pulses Current Medications: Current Medications Sig/Willy Start time Last Medication Dose Route Stop Time Status Admin Aspirin 81 MG DAILY 11/14 1000 DCD 11/15 PO 0836 Atorvastatin Calcium 20 MG 1700 11/14 1700 DCD 11/14 PO 1658 Heparin Sodium 5,000 UNIT Q8 11/14 0600 DCD (Porcine) SC Labetalol HCl 100 MG BID 11/14 1000 DCD 11/15 PO 0839 Multivitamins 1 TAB DAILY 11/14 1000 DCD 11/15 Therapeutic PO 0836 Sodium Chloride 1,000 ML ONCE ONE 11/14 0400 DC 11/14 IV 11/14 1719 0450 Last 24 Hrs of Labs/Mics: Laboratory Tests 11/15/17 0624: Anion Gap 10, Estimated GFR > 60, BUN/Creatinine Ratio 16.3, CBC w Diff NO MAN DIFF REQ, RBC 4.50 L, MCV 89.6, MCH 30.0, MCHC 33.4, RDW 13.8, MPV 7.7, Gran % 64.5, Lymphocytes % 25.2, Monocytes % 7.1, Eosinophils % 2.6, Basophils % 0.6, Absolute Granulocytes 3.9, Absolute Lymphocytes 1.5, Absolute Monocytes 0.4, Absolute Eosinophils 0.2, Absolute Basophils 0 Zeke Ramirez MD 11/15/17 1554: Attending MD Review Statement Attending Statement Attending MD Statement: examined this patient, discuss w/resident/PA/SUPERVISOR PUMPING, agreed w/resident/PA/SUPERVISOR PUMPING, discussed with family, reviewed EMR data (avail), discussed w/ nursing, discussed w/case mgmt, reviewed images, amended to note Attending Assessment/Plan: The patient was seen and discussed with house staff, nursing, family () and Cardiology (Dr. Silvestre). Agree with plan of care to discharge today. ECHO negative except mild LAE.
[2017-11-15 07:53] LABS: ABSOLUTE BASOPHIL COUNT 0 /CUMM (0.0-0.2); ABSOLUTE EOSINOPHIL COUNT 0.2 /CUMM (0.0-0.7); ABSOLUTE GRANULOCYTE CT 3.9 /CUMM (1.4-6.5); ABSOLUTE LYMPH COUNT 1.5 /CUMM (1.2-3.4); ABSOLUTE MONOCYTE COUNT 0.4 /CUMM (0.10-0.60); BASOPHIL % 0.6 % (0.0-2.0); EOSINOPHIL % 2.6 % (0-5); GRANULOCYTE % 64.5 % (42.2-75.2); HEMATOCRIT 40.3 % (42-52); MEAN CORPUSCULAR HGB CONC 33.4 G/DL (33.0-37.0); MEAN CORPUSCULAR VOLUME 89.6 FL (80.0-94.0); MEAN PLATELET VOLUME 7.7 FL (7.4-10.4); PLATELET COUNT 257 /CUMM (130-400); RBC DISTRIBUTION WIDTH 13.8 % (11.5-14.5); WHITE BLOOD CELL COUNT 6.1 /CUMM (4.8-10.8)
--- NOTE | 2017-11-15 09:59 | PN- Cardiology ---
Subjective Subjective: Telemetry reviewed. Sinus rhythm throughout the patient anxious to go home. Objective Vital Signs and I&Os Vital Signs Date Time Temp Pulse Resp B/P B/P Pulse O2 O2 Flow FiO2 Mean Ox Delivery Rate 11/15 0839 70 130/62 11/15 0653 98.1 61 20 134/66 97 Room Air 11/14 2234 98.2 71 16 130/72 93 Room Air 11/14 2110 72 130/72 11/14 1400 98.3 58 20 140/80 95 11/14 1129 98.3 58 20 140/80 95 Room Air 11/14 1004 84 152/72 Intake & Output 11/15 1600 11/15 0800 11/15 0000 11/14 1600 11/14 0800 11/14 0000 Intake Total 110 780 700 Output Total 250 250 200 Balance -140 780 450 -200 Intake, IV 10 300 300 Intake, Oral 100 480 400 Output, Urine 250 250 200 Patient 183 lb Weight Physical Exam: Gen. exam patient comfortable Head normocephalic atraumatic Eyes sclera anicteric conjunctiva showed no pallor extraocular muscles were normal Neck no jugular venous distention no thyroid masses are palpable nodes Chest lungs were clear bilaterally Heart regular rhythm 1 S2 physiologically split Abdomen soft no organomegaly bowel sounds normal Extremities no clubbing cyanosis or pedal edema Neurological no gross motor or sensory deficits Current Medications: Current Medications Sig/Willy Start time Last Medication Dose Route Stop Time Status Admin Aspirin 81 MG DAILY 11/14 1000 AC 11/15 PO 0836 Atorvastatin Calcium 20 MG 1700 11/14 1700 AC 11/14 PO 1658 Heparin Sodium 5,000 UNIT Q8 11/14 0600 AC (Porcine) SC Labetalol HCl 100 MG BID 11/14 1000 AC 11/15 PO 0839 Multivitamins 1 TAB DAILY 11/14 1000 AC 11/15 Therapeutic PO 0836 Sodium Chloride 1,000 ML ONCE ONE 11/14 0400 DC 11/14 IV 11/14 1719 0450 Results Last 48 Hrs of Labs/Mics: Laboratory Tests 11/15/17 06: Anion Gap 10, Estimated GFR > 60, BUN/Creatinine Ratio 16.3, CBC w Diff NO MAN DIFF REQ, RBC 4.50 L, MCV 89.6, MCH 30.0, MCHC 33.4, RDW 13.8, MPV 7.7, Gran % 64.5, Lymphocytes % 25.2, Monocytes % 7.1, Eosinophils % 2.6, Basophils % 0.6, Absolute Granulocytes 3.9, Absolute Lymphocytes 1.5, Absolute Monocytes 0.4, Absolute Eosinophils 0.2, Absolute Basophils 0 11/14/17 1455: Troponin I < 0.01 11/14/17 0620: Troponin I < 0.01 11/14/17 0037: Anion Gap 13, Estimated GFR > 60, BUN/Creatinine Ratio 17.5, Glucose 101 H, Calcium 9.2, Iron 66, TIBC 365, Ferritin 67.5, Total Bilirubin 0.3, Direct Bilirubin 0.2, AST 34, ALT 38, Alkaline Phosphatase 56, Troponin I < 0.01, Total Protein 6.3, Albumin 3.9, Amylase 61, Lipase 85, D-Dimer High Sensitivty 214, CBC w Diff NO MAN DIFF REQ, RBC 4.03 L, MCV 88.3, MCH 30.3, MCHC 34.3, RDW 13.5 , MPV 7.3 L, Gran % 59.6, Lymphocytes % 28.1, Monocytes % 8.2, Eosinophils % 3.4, Basophils % 0.7, Absolute Granulocytes 3.5, Absolute Lymphocytes 1.6, Absolute Monocytes 0.5, Absolute Eosinophils 0.2, Absolute Basophils 0 Assessment/Plan Assessment/Plan In summary this 77-year-old gentleman has the following problems The patient is a 77-year-old gentleman with a past medical history of coronary artery disease (multivessel), prior CVA (2006 status post cardiac catheterization, intracranial bleed 2013), back surgery secondary to herniated disks. He presents following a syncopal episode. Syncope: The patient presents with syncope which is most likely secondary to the etiology of his painful toe trauma. At this point, we will check orthostatic blood pressures as well as a repeat echocardiogram findings are negative, further workup for his event may be performed as an outpatient. Hypertension: In reviewing the patient's outpatient blood pressure records, his outpatient blood pressure values have demonstrated improved control in comparison to his current levels. I would continue his outpatient regimen and adjust following discharge. Coronary artery disease: Stable. The patient describes being able to perform approximately 6 METs of physical activity limited by his back pain. 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 Syncope appears to be related to vasovagal related pain. His vitals have been stable. No significant arrhythmias been documented. He is stable for discharge. His primary charter and tour bus driver. Continue telemetry? No
[2017-11-15 10:00] VITALS: BP 122/50
== END 2017-11-15 13:05 ==
LOC: ERH 00:18 → ERHI 02:41 → 1NO 02:41 → ERHI 07:24 → ENRESERV 09:56 → ENTRNSPT 10:35 → EDTRNSPTSTS 10:55 → EDTRNSPT 10:55 → 1NO 11:03 → CMPTRNSPT 11:13 → ENPENDDIS 11-15 11:07 → ENTRNSPT 11-15 12:42 → EDTRNSPT 11-15 13:02 → EDTRNSPTSTS 11-15 13:02 → 1NO 11-15 13:05 → CMPTRNSPT 11-15 13:09
PROVIDERS: Internal Medicine Infectious Disease; Pediatrics
DX: R55 Syncope and collapse (principal); I25.10 Atherosclerotic heart disease of native coronary artery without angina pectoris; I25.2 Old myocardial infarction; Z95.5 Presence of coronary angioplasty implant and graft; I69.311 Memory deficit following cerebral infarction; E87.1 Hypo-osmolality and hyponatremia; Z79.82 Long term (current) use of aspirin; I10 Essential (primary) hypertension; Z79.899 Other long term (current) drug therapy
CPT/HCPCS: 36415; 71045; 73660-LT; 82436; 93005; 93010; 93306; 97116-GO; 97116-GP; 97161-GP; G0378; G8979-GP; G8980-GP; J1644; J3490